=== PATIENT | male | born 1960 | race Caucasian/White ===

== ENCOUNTER 2020-10-18 10:53 | Outpatient (CLI) | payer SELFPAY ==
--- NOTE | ~2020-10-18 | NM_ITS ---
EXAMINATION: NM bone scan whole body DATE: 10/18/2020 14:11 INDICATION: Lesion of bone in the lumbosacral spine TECHNIQUE: 21.8 mCi Tc-99m HDP was administered intravenously. Delayed whole-body scintigrams were o btained. COMPARISON: There are no relevant imaging studies at our institution. FINDINGS: Likely degenerative joint centered uptake at multiple joints including at the bilateral acromioclavic ular joints, right greater than left, bilateral sternoclavicular articulations, cervical and lumbar f acet joints, bilateral hands and wrists, left hip, bilateral knees, left greater than right, left ank le and in the bilateral mid and forefeet. The region of the caudal sacrum and coccyx are obscured by intense excreted activity in the bladder. No other suspicious foci of abnormal bone uptake. IMPRESSION: 1. Multiple scattered foci of likely degenerative mild to moderate joint centered uptake in the axial and appendicular skeleton as detailed above. Reviewed, dictated and finalized at location A. IMPRESSION: 1. Multiple scattered foci of likely degenerative mild to moderate joint center ed uptake in the axial and appendicular skeleton as detailed above.
== END 2020-10-18 10:54 | disposition home or self-care (01) ==
PROVIDERS: Visit Provider Family Medicine
DX: M89.9 Disorder of bone, unspecified (principal)
CPT/HCPCS: 78306; A9561